=== PATIENT | male | born 1950 | race Caucasian/White ===

== ENCOUNTER 2016-11-02 12:25 | Inpatient (IN) | payer MEDICARE ==
[~2016-11-02] VITALS: Ht 172.7 cm; Wt 52.8 kg
--- NOTE | ~2016-11-02 | CR72 ---
[facility] A Service of [facility] & [facility] / [facility] RADIOLOGY TEXT RESULTS PATIENT: BLANKA RITCHIE LOCATION: [facility] 304-01 : 50 UNIT #: [id number] AGE: [address]: Elba Tamayo MD SEX: M ORDER DR: [id number] [facility] [address] [facility]. [place], [place] [address] [id number] MR#: [id number] Acc #: [id number] NAME: BLANKA RITCHIE : 1950 SEX: M STUDY DATE/TIME: 11/02/2016 13:09 UNIT: [facility] ROOM: STUDY DESCRIPTION: CR Chest Single View Portable Attending Physician: Hilario Gifford M.D. Ordering Physician: Hilario Gifford M.D. Primary Care Physician: Jose Salcedo M.D. MEDICAL IMAGING REPORT This report is preliminary unless electronic signature is present EXAM Single view of the chest, dated 11/02/2016. COMPARISON None. HISTORY Weakness and shortness of air today. FINDINGS Single view of the chest was obtained. Calcified right lower lobe lung nodule is noted likely related to old granulomatous disease. The remaining lungs are well aerated without acute cardiopulmonary disease. Heart is of normal size. Dictated by... Helene Cardozo M.D. THIS IS AN ELECTRONICALLY VERIFIED REPORT Helene Cardozo M.D. at 11/03/2016 5:24 PM CPR/jt TD: 11/02/2016 16:21 JOB #: [id number] MEDICAL IMAGING REPORT Page 1 of 1 COPY
--- NOTE | ~2016-11-02 | EKG ---
PATIENT: BLANKA RITCHIE UNIT #: [id number] Ventricular Rate: 67 BPM Atrial Rate: 67 BPM P-R Interval: 158 ms QRS Duration: 94 ms Q-T Interval: 444 ms QTC Calculation(Bezet): 469 ms P [place]: 82 degrees Calculated R [place]: 69 degrees Calculated T [place]: 56 degrees Diagnosis Line: Normal sinus rhythm Diagnosis Line: Normal ECG Diagnosis Line: No previous ECGs available Diagnosis Line: Confirmed by PIPPA GONZALEZ MD ([id number]) on Diagnosis Line: 11/03/2016 4:41:58 PM INTERPRETING MD: VASU
--- NOTE | ~2016-11-02 | CO ---
Unit #: [id number] #: [id number] Patient: BLANKA RITCHIE [id number] [address] [place], [place] [address] [id number] I MR#: [id number] NAME: BLANKA RITCHIE ROOM: 304 Age: 66 Sex: M Admission Date: 11/02/2016 : 1950 Attending Physician: Elba Tamayo M.D. Primary Care Physician: Jose Salcedo M.D. Consultation Date: 11/03/2016 CONSULTATION REPORT REASON FOR CONSULTATION Hyponatremia. HISTORY OF PRESENT ILLNESS This is a 66-year-old white gentleman with known history of heavy alcohol use. He admits to drinking about 6 beers or more daily. He was found in a [employer] behaving erratically. He states that he fell to the floor and was assisted by EMS, who brought the patient to the emergency room for further evaluation and management. He has not had any complaints of cough, shortness of breath, nausea, or vomiting. He claims to be eating regular meals and drinking plenty of fluids. He denies any shortness of breath, cough, nausea or vomiting, diarrhea, dysuria, or hematuria. He has no complaints of dependent edema or chest pain. PAST MEDICAL HISTORY Negative except as stated above. HOME MEDICATIONS He is on no home medications. SOCIAL HISTORY The patient drinks 6 beers or more a day. He denies any drug abuse. He quit smoking about 25 years ago. FAMILY HISTORY Negative for renal disease. REVIEW OF SYSTEMS A 14-point review of systems was performed, and the pertinent positives and negatives are as stated above. PHYSICAL EXAMINATION GENERAL: This is an awake, alert, but confused white gentleman, who is hallucinating. VITAL SIGNS: Today, show a temperature of 97.9, pulse 64, respirations 15, blood pressure is 123/79. HEENT: Shows the pupils to be equal and reactive to light with normal extraocular motility. The oropharynx is clear. There are no mucosal abnormalities. NECK: Supple with 2+ carotid pulses. No carotid bruits or JVD. HEART: Regular rhythm without murmurs, gallops, or rubs. LUNGS: Clear without rales, rhonchi, or wheezes. ABDOMEN: Scaphoid, soft, and nontender with positive bowel sounds. No hepatosplenomegaly. No CVA tenderness. No presacral edema. Unit #: [id number] #: [id number] Patient: BLANKA RITCHIE EXTREMITIES: Show no clubbing, no cyanosis, no significant pretibial edema, 2+ pedal and radial pulses. DIAGNOSTIC STUDIES LABORATORY RESULTS: Showed the following; glucose 91, BUN and creatinine of 17 and 0.8, sodium is 114, potassium 3.4, chloride 77, CO2 of 34, calcium 8.3, magnesium 2.2, total protein 7.4, albumin 4.1, total bilirubin is 3.8, AST is 49, ALT is 32, alkaline phosphatase is 81, CK is 48. Serum osmolality is 275 with a urine osmolality of 260. TSH is 2.1, PT and PTT are 10.9 and 30. White count is 4400, hemoglobin and hematocrit are 11.9 and 33, platelet count is 309,000. Urine sodium is less than 1%. IMPRESSION 1. Hyponatremia, most likely secondary to sodium greater than free water losses. 2. Alcoholic hepatitis. 3. Alcohol abuse. 4. Alcoholic withdrawal. RECOMMENDATIONS We would continue with IV normal saline. We would check phosphorus. We would restrict free water for now. We would manage withdrawal symptoms as you are doing. The patient has been advised to stop drinking alcohol. We would follow along with you. Thank you very much for allowing us to participate in this patient's care. Dictated by... Judd Oquendo Jr., MDaily. JOYCE/marina TD: 11/04/2016 04:08 JOB #: [id number] CONSULTATION REPORT Page 1 of 1 X Judd Oquendo Jr, MD X CONSULTATION REPORT
--- NOTE | ~2016-11-02 | HP ---
Unit #: [id number] #: [id number] Patient: BLANKA RITCHIE [id number] [facility] [address] [facility]. [place], [place] [address] [id number] MR#: [id number] NAME: BLANKA RITCHIE ROOM: Age: 66 Sex: M Admission Date: 11/02/2016 : 1950 Attending Physician: Hilario Gifford M.D. Primary Care Physician: Jose Salcedo M.D. HISTORY AND PHYSICAL CHIEF COMPLAINT Chief complaint is altered mental status. HISTORY OF PRESENT ILLNESS The patient is a 66-year-old male with past medical history of alcohol abuse who presented to the emergency department for evaluation of the above. The patient was reportedly acting "odd" at the [facility]. He was brought to the emergency department for further evaluation. The patient has no complaints. He states that his "metabolism is low." He denies any fever; no cough or cold symptoms, no chest pain, no difficulty breathing, no vomiting or diarrhea, no urinary problems. In the emergency department initial pulse and blood pressure were 74 and 136/74 respectively. Laboratory notable for sodium of 118, potassium is 2.2. He was given a 1 L normal saline bolus. He is being admitted to [facility] for evaluation and further treatment. Of note the patient is a daily drinker. He typically drinks at least four to six beers daily. PAST MEDICAL HISTORY The patient denies hospitalizations. PAST SURGICAL HISTORY None. SOCIAL HISTORY The patient is a daily drinker. He drinks four to six beers daily. His last drink was yesterday. He is retired from a [employer] company. He quit smoking 25 years ago. FAMILY HISTORY Family history is notable for both parents being alcoholics. ALLERGIES No known allergies. HOME MEDICATIONS None. REVIEW OF SYSTEMS A complete review of systems is negative except as indicated in the HPI. Unit #: [id number] #: [id number] Patient: BLANKA RITCHIE DIAGNOSTIC TESTS CARDIOVASCULAR: EKG shows normal sinus rhythm with a rate of 67 beats per minute. LABORATORY: Complete blood count is essentially normal. Comprehensive metabolic panel notable for sodium of 117, potassium 2.1, chloride at 63, CO2 of 36, AST and ALT are 49 and 32 respectively, total bilirubin is 3.8 with 0.9 direct, 2.9 indirect. Accu-Chek was 69, then dropped to 65, most recently 124. IMAGING: Chest x-ray shows calcified right lower lobe lung nodule, likely old granulomatous disease. PHYSICAL EXAMINATION VITAL SIGNS: Temperature is 97.5. Pulse 74. Respirations 18. Blood pressure 136/74. Oxygen saturation is 95% on 2 L. GENERAL: The patient is a male who is awake and alert, in no acute distress. HEENT: The head is atraumatic. Mucous membranes are moist. NECK: Is supple. Trachea is midline. CARDIOVASCULAR: Is regular rate and rhythm. LUNGS: Are relatively clear to auscultation bilaterally with no increased work of breathing. ABDOMEN: Is soft, nontender, with bowel sounds present in all four quadrants. EXTREMITIES: The patient does have scattered healing abrasions. There is no pedal edema. NEURO: The patient is oriented x3 although he is not sure of the month. He does know the year. He is moving all extremities. He follows commands. PSYCH: The patient is somewhat disheveled and makes poor eye contact. SKIN: Of examined areas is warm and dry. ASSESSMENT The patient is a 66-year-old male with: 1. Altered mental status. 2. Hyponatremia. The patient's sodium is 117 with no baseline for comparison. The patient received 1 L of normal saline in the emergency department. The patient does appear somewhat volume depleted. Urinalysis is pending. 3. Hypokalemia with potassium of 2.2. 4. Alcohol abuse with last drink being yesterday. 5. Hyperbilirubinemia. 6. Former smoker. PLAN 1. Admit to intermediate level. 2. Regular diet if passes bedside swallow. 3. Bedrest. 4. Fall precautions. 5. PT/OT to evaluate and treat. 6. TSH, B12 and folate. 7. Neuro checks. 8. Check magnesium level. 9. Potassium and magnesium protocol. 10. Urine sodium and osmolality. 11. Serum osmolality. 12. Alcohol withdrawal protocol to start now with IV fluid rate at 75 mL Unit #: [id number] #: [id number] Patient: BLANKA RITCHIE hour. 13. BMPs q.[address] Banda regarding hyponatremia. 15. irrigation manager and social work consult regarding alcohol abuse. 16. Check INR. 17. Cardiac enzymes. 18. Frequent Accu-Cheks. 19. Hemoglobin A1C. 20. SCDs for DVT prophylaxis. 21. Repeat labs in the morning. 22. Additional workup and consultants based on above. Dictated by Anabelle Welch M.D. ARNULFO/kam TD: 11/02/2016 18:50 JOB #: [id number] HISTORY AND PHYSICAL Page 1 of 1 X Anabelle Welch MD X HISTORY AND PHYSICAL
--- NOTE | ~2016-11-02 | A ---
[facility] Nutrition Therapy DATE: 11/03/16 Patient: BLANKA RITCHIE Physician: ANTONIO Address: [address] Room/Bed: [address] [place] [address], Zip: [place] [address] Admit Date: 11/02/16 Date of : [birth year] Height: 5 8 Weight: 106 48.2 NUTRITIONAL ASSESSMENT: REASON: Low BMI 66 yo male admitted for AMS PMH: EtOH abuse Anthropometrics: Ht: 68" Wt: 48.2 kg BMI: 16.2 IBW: 70 kg, 69% IBW Labs: Na+ 120 Cl- 77 Alb 3.2 Phos 1.2 Accuchecks 107 Meds: Phenergan, D5%, folic acid, thiamine, folvite, therapeutic formula, loperamide Bowel function: last BM 11/03 Skin Integrity: Dry skin BL feet Scabbed area left shoulder Small briose left back Scabs- BLE/ scattered/ right forehead Edema: none noted Estimated Nutrition Needs: Increased due to low body weight Diet: Regular Assessment: Chart reviewed, events noted. 66 yo male admitted for AMS, found to have hyponatremia and hypokalemia. Pt has a h/o EtOH abuse with reported consumption of 4-6 beers daily. Pt is JEF for CT head at time of RD visit. RN reports that the pt's standing scale weight of 106 lbs is likely accurate, as he appears frail and weak. RN reports that the pt is consuming all of his meals and seems to have a great appetite. Pt is likely malnourished d/t EtOH abuse, low body weight. Pt is receiving vitamins and minerals, repleting lytes as noted above. Please see recommendations below. Dx: Malnutrition RT possibly EtOH abuse AEB BMI 16.2, 69% IBW, pt thin and frail appearing per RN report. Intervention: 1. Continue regular diet 2. Ensure TID Monitoring, Evaluation and Goals: [facility] Nutrition Therapy DATE: 11/03/16 Patient: BLANKA RITCHIE Physician: ANTONIO Address: [address] Room/Bed: [address] [place] [address], Zip: [place] [address] Admit Date: 11/02/16 Date of : [birth year] Height: 5 8 Weight: 106 48.2 1. Oral intake; consume 50-100% of meals and supplements 2. Improve labs; Na+, Cl-, Phos 3. Weight; promote weight gain, prevent weight loss 4. Skin; prevent breakdown Recommendations: 1. Continue regular diet as tolerated. 2. Ensure TID with meals for supplemental nutrition. 3. Continue vitamin and mineral supplementation. 4. Encourage adequate nutritional intake as needed. Pt is at mild-moderate nutritional risk. RD will follow hospital course per protocol. Respectfully, JOSE ELIAS JUAREZ RD, LD [employer] and [employer] [facility] cc: client file
--- NOTE | ~2016-11-02 | DS ---
Unit #: [id number] #: [id number] Patient: BLANKA RITCHIE [id number] [address] [place], [place] [address] [id number] I MR#: [id number] NAME: BLANKA RITCHIE ROOM: 301 Age: 66 Sex: M Admission Date: 11/02/2016 : 1950 Discharge Date: 11/07/2016 Attending Physician: Elba Tamayo M.D. Primary Care Physician: Jose Salcedo M.D. DISCHARGE SUMMARY FINAL DIAGNOSES 1. Altered mental status. 2. Toxic metabolic encephalopathy. 3. Hyponatremia. 4. Beer potomania. CONSULT Dr. Rob Banda, Nephrology. HOSPITAL COURSE A 66-year-old heavy drinker originally presented with altered mental status. He was seen and evaluated. Encephalopathy was thought to be secondary to hyponatremia. He does have some COPD as well. He was seen by nephrology as his sodium level was down to 125. This improved with treatment today which is the day of discharge. His sodium level is 131. Medications have been adjusted by nephrology. IV fluids have been discontinued. He also had some electrolyte abnormality which included hypomagnesemia which was repleted and his potassium was also repleted as well. For his debility, he is weak at this time. The plan will be to discharge him to subacute rehab. I believe [facility] has accepted. Will discharge him there. Patient was reluctant to discharge to [facility]; however, I reassured patient that his estimated rehab course to probably spend about two to three weeks which he is agreeable to. Will discharge him to [facility]. Please call ([phone] to verify orders. Time spent coordinating discharge about 42 minutes. Dictated by... Earl Emerson TD: 11/07/2016 12:00 JOB #: [id number] CC: Unit #: [id number] #: [id number] Patient: BLANKA RITCHIE DISCHARGE SUMMARY Page 1 of 1 X Gordo Suero MD SUMMARY
--- NOTE | ~2016-11-02 | CT71 ---
[facility] A Service of [facility] & [facility] RADIOLOGY TEXT RESULTS PATIENT: BLANKA RITCHIE LOCATION: [facility] : [birth year] UNIT #: [id number] AGE: [address]: Elba Tamayo MD SEX: M ORDER DR: [id number] [facility] [address] [facility]. [place], [place] [address] [id number] I MR#: [id number] Acc #: [id number] NAME: BLANKA RITCHIE : 1950 SEX: M STUDY DATE/TIME: 11/03/2016 14:16 UNIT: [id number] ROOM: [facility] STUDY DESCRIPTION: CT Head Wo Contrast Attending Physician: Elba Tamayo M.D. Ordering Physician: Elba Tamayo M.D. Primary Care Physician: Jose Salcedo M.D. MEDICAL IMAGING REPORT This report is preliminary unless electronic signature is present EXAM CT head without contrast dated 11/03/2016. COMPARISON None. HISTORY Confusion today. TECHNIQUE This CT exam was performed with one or more of the following radiation dose reduction techniques: automatic exposure control, adjustment of mA and/or kV according to patient size, and iterative reconstruction. FINDINGS CT of the head was obtained without contrast in the axial plane as per the protocol. Age-appropriate parenchymal volume is seen. No acute intracranial hemorrhage, hydrocephalus, space-occupying mass, mass effect or midline shift. There is mild nasal septal deviation to the left. Paranasal sinuses demonstrate mild mucosal thickening and frothiness in the right maxillary antrum. Mastoid air cells and orbits and the ocular structures do not demonstrate any significant abnormality. IMPRESSION 1. No demonstrable intracranial abnormality. 2. Correlate with right maxillary sinusitis. Dictated by... Helene Cardozo M.D. THIS IS AN ELECTRONICALLY VERIFIED REPORT [facility] A Service of [facility] & [facility] RADIOLOGY TEXT RESULTS PATIENT: BLANKA RITCHIE LOCATION: [facility] : [birth year] UNIT #: [id number] AGE: [address]: Elba Tamayo MD SEX: M ORDER DR: Helene Cardozo M.D. at 11/08/2016 7:04 PM CPR/ea TD: 11/04/2016 07:05 JOB #: [id number] MEDICAL IMAGING REPORT Page 1 of 1 COPY
[2016-11-02 13:50] LABS: BASOPHIL% 0.5 % (0-2.5); EOSINOPHIL% 0.1 % (0.0-7.0); HEMATOCRIT 38.6 % (38.0-50.0); HEMOGLOBIN 13.9 gm/dL (13.0-16.0); LYMPHOCYTE# 0.5 X10e3 (1.0-3.5); LYMPHOCYTE% 12.5 % (17.0-45.0); MEAN CELL VOLUME 95.9 FL (83-96); MEAN CORPUSCULAR HEMOGLOBIN 34.5 PG (28-34); MEAN PLATELET VOLUME 7.2 FL (6.5-11.5); MONOCYTE# 0.4 X10e3 (0-1.0); NEUTROPHIL# 3.3 X10e3 (1.5-7.1); NEUTROPHIL% 77.9 % (40-75); PLATELET COUNT 250 X10e3 (140-420); RED BLOOD COUNT 4.03 X10e (3.90-5.60); WHITE BLOOD COUNT 4.2 X10e3 (4.0-10.5)
[2016-11-02 13:51] LABS: DIFF IND NO
[2016-11-02 14:18] LABS: ALBUMIN SERUM 4.1 g/dL (3.5-5.0); BILIRUBIN, DIRECT 0.9 mg/dL (0.0-0.2); BILIRUBIN,INDIRECT 2.9 mg/dL (0.0-0.9); BILIRUBIN,TOTAL 3.8 mg/dL (0.2-2.0); BUN/CREATININE RATIO 18.33; CALCIUM SERUM 9.3 mg/dL (8.4-10.2); CREATININE SERUM 1.2 mg/dL (0.6-1.4); GLOM FILT RATE Estimated 62.7 mL/min (>60); PROTEIN TOTAL SERUM 7.4 g/dL (6.0-8.3)
[2016-11-02 14:22] LABS: POTASSIUM 2.1 mmol/L (3.5-5.1)
[2016-11-02 15:35] LABS: BUN/CREATININE RATIO 18.18; CALCIUM SERUM 8.8 mg/dL (8.4-10.2); CREATININE SERUM 1.1 mg/dL (0.6-1.4); GLOM FILT RATE Estimated 69.6 mL/min (>60)
[2016-11-02 15:38] LABS: POTASSIUM 2.2 mmol/L (3.5-5.1)
[2016-11-02] MEDS ORDERED: NO MEDICATIONS (17:43)
[2016-11-02 17:48] LABS: URINE SOURCE CLEAN CATCH
[2016-11-02 18:10] LABS: URINE APPEARANCE CLEAR; URINE BILIRUBIN NEG (NEG); URINE BLOOD NEG (NEG); URINE COLOR YELLOW; URINE GLUCOSE 100 MG/DL (NEG); URINE KETONE 1+ (NEG); URINE LEUKOCYTE ESTERASE NEG (NEG); URINE NITRATE NEG (NEG); URINE PH 6.5 (5-8); URINE PROTEIN NEG (NEG)
[2016-11-02 18:22] LABS: AMPHETAMINE NEG (NEG); BARBITURATES NEG (NEG); BENZODIAZEPINES NEG (NEG); COCAINE NEG (NEG); MARIJUANA NEG (NEG); OPIATES NEG (NEG); TRICYCLIC ANTIDEPRESSANTS NEG (NEG); U METHADONE NEG (NEG)
[2016-11-02 18:27] LABS: CULTURE INDICATED? NO
[2016-11-02 19:41] LABS: PROTHROMBIN TIME (PATIENT) 10.9 SECONDS (10.0-11.7)
[2016-11-02 19:50] LABS: CK TOTAL 65 IU/L (36-174); MAGNESIUM 2.2 mg/dL (1.6-3.0)
[2016-11-02 20:11] LABS: %MB 3.5 % (0.0-4.0); MB 2.3 ng/ml
[2016-11-02 20:14] LABS: CALCIUM SERUM 8.7 mg/dL (8.4-10.2); GLOM FILT RATE Estimated 78.1 mL/min (>60)
[2016-11-02 20:15] LABS: FOLATE (FOLIC ACID) >23.3 ng/mL (>5.8)
[2016-11-02 20:16] LABS: POTASSIUM 2.6 mmol/L (3.5-5.1)
[2016-11-03 01:22] LABS: BUN/CREATININE RATIO 21.25; CALCIUM SERUM 8.3 mg/dL (8.4-10.2); CREATININE SERUM 0.8 mg/dL (0.6-1.4); GLOM FILT RATE Estimated 93.1 mL/min (>60); POTASSIUM 3.4 mmol/L (3.5-5.1)
[2016-11-03 01:32] LABS: SODIUM URINE RANDOM <10 mmol/L
[2016-11-03 01:44] LABS: OSMOLALITY,URINE 260 mOsmo/kg (250-900)
[2016-11-03 01:58] LABS: CK TOTAL 58 IU/L (36-174)
[2016-11-03 07:38] LABS: HEMATOCRIT 33.1 % (38.0-50.0); MEAN CELL VOLUME 96.5 FL (83-96); MEAN CORPUSCULAR HEMOGLOBIN 34.7 PG (28-34); MEAN PLATELET VOLUME 6.9 FL (6.5-11.5); RED BLOOD COUNT 3.43 X10e (3.90-5.60); RED CELL DISTRIBUTION WIDTH 15.6 % (11.0-15.5); WHITE BLOOD COUNT 4.4 X10e3 (4.0-10.5)
[2016-11-03 07:41] LABS: HEMOGLOBIN 11.9 gm/dL (13.0-16.0)
[2016-11-03 07:53] LABS: PROTHROMBIN TIME (PATIENT) 11.1 SECONDS (10.0-11.7)
[2016-11-03 08:18] LABS: THYROID STIMULATING HORMONE 1.96 uIU/ml (0.34-5.60)
[2016-11-03 08:20] LABS: CK TOTAL 52 IU/L (36-174)
[2016-11-03 08:22] LABS: ALBUMIN SERUM 3.2 g/dL (3.5-5.0); BILIRUBIN,TOTAL 2.2 mg/dL (0.2-2.0); BUN/CREATININE RATIO 16.25; CALCIUM SERUM 8.5 mg/dL (8.4-10.2); CREATININE SERUM 0.8 mg/dL (0.6-1.4); GLOM FILT RATE Estimated 93.1 mL/min (>60); MAGNESIUM 1.9 mg/dL (1.6-3.0); POTASSIUM 3.9 mmol/L (3.5-5.1); PROTEIN TOTAL SERUM 5.8 g/dL (6.0-8.3)
[2016-11-03 12:06] LABS: BUN/CREATININE RATIO 13.75; CALCIUM SERUM 8.4 mg/dL (8.4-10.2); CREATININE SERUM 0.8 mg/dL (0.6-1.4); GLOM FILT RATE Estimated 93.1 mL/min (>60); POTASSIUM 3.2 mmol/L (3.5-5.1)
[2016-11-03 12:36] LABS: CREATININE,RANDOM URINE 25 mg/dL
[2016-11-03 12:37] LABS: OSMOLALITY,URINE 173 mOsmo/kg (250-900)
[2016-11-04 05:18] LABS: HEMATOCRIT 32.1 % (38.0-50.0); HEMOGLOBIN 11.1 gm/dL (13.0-16.0); MEAN CELL VOLUME 99.3 FL (83-96); MEAN CORPUSCULAR HEMOGLOBIN 34.2 PG (28-34); MEAN CORPUSCULAR HGB CONC 34.4 g/dL (30-36); MEAN PLATELET VOLUME 7.7 FL (6.5-11.5); RED BLOOD COUNT 3.24 X10e (3.90-5.60); RED CELL DISTRIBUTION WIDTH 15.3 % (11.0-15.5); WHITE BLOOD COUNT 4.8 X10e3 (4.0-10.5)
[2016-11-04 06:09] LABS: ALBUMIN SERUM 2.8 g/dL (3.5-5.0); BILIRUBIN,TOTAL 1.2 mg/dL (0.2-2.0); BUN/CREATININE RATIO 15.71; CALCIUM SERUM 7.9 mg/dL (8.4-10.2); CREATININE SERUM 0.7 mg/dL (0.6-1.4); GLOM FILT RATE Estimated 98.4 mL/min (>60); MAGNESIUM 1.6 mg/dL (1.6-3.0); POTASSIUM 3.5 mmol/L (3.5-5.1); PROTEIN TOTAL SERUM 5.7 g/dL (6.0-8.3)
[2016-11-05 04:51] LABS: HEMATOCRIT 32.8 % (38.0-50.0); HEMOGLOBIN 11.4 gm/dL (13.0-16.0); MEAN CELL VOLUME 99.1 FL (83-96); MEAN CORPUSCULAR HEMOGLOBIN 34.6 PG (28-34); MEAN CORPUSCULAR HGB CONC 34.9 g/dL (30-36); RED BLOOD COUNT 3.31 X10e (3.90-5.60); RED CELL DISTRIBUTION WIDTH 15.5 % (11.0-15.5)
[2016-11-05 06:11] LABS: BUN/CREATININE RATIO 11.66; CALCIUM SERUM 8.4 mg/dL (8.4-10.2); CREATININE SERUM 0.6 mg/dL (0.6-1.4); GLOM FILT RATE Estimated 104.8 mL/min (>60); MAGNESIUM 1.7 mg/dL (1.6-3.0); PHOSPHOROUS 1.3 mg/dL (2.5-4.6); POTASSIUM 3.3 mmol/L (3.5-5.1)
[2016-11-06 12:01] LABS: HEMATOCRIT 34.8 % (38.0-50.0); HEMOGLOBIN 12.2 gm/dL (13.0-16.0); MEAN CELL VOLUME 99.5 FL (83-96); MEAN CORPUSCULAR HEMOGLOBIN 34.9 PG (28-34); MEAN CORPUSCULAR HGB CONC 35.1 g/dL (30-36); MEAN PLATELET VOLUME 7.6 FL (6.5-11.5); RED BLOOD COUNT 3.5 X10e (3.90-5.60); RED CELL DISTRIBUTION WIDTH 15.7 % (11.0-15.5); WHITE BLOOD COUNT 3.1 X10e3 (4.0-10.5)
[2016-11-06 12:23] LABS: BLOOD UREA NITROGEN <5 mg/dL (9-23); BUN/CREATININE RATIO 8.33; CALCIUM SERUM 8.5 mg/dL (8.4-10.2); CARBON DIOXIDE 28 mmol/L (22-31); CHLORIDE 93 mmol/L (100-111); CREATININE SERUM 0.6 mg/dL (0.6-1.4); GLOM FILT RATE Estimated 104.8 mL/min (>60); GLUCOSE FASTING 101 mg/dL (70-110); POTASSIUM 3.9 mmol/L (3.5-5.1); SODIUM 129 mmol/L (135-145)
[2016-11-07 06:32] LABS: HEMATOCRIT 33.1 % (38.0-50.0); HEMOGLOBIN 11.6 gm/dL (13.0-16.0); MEAN CORPUSCULAR HEMOGLOBIN 34.6 PG (28-34); MEAN PLATELET VOLUME 7.8 FL (6.5-11.5); RED BLOOD COUNT 3.34 X10e (3.90-5.60); RED CELL DISTRIBUTION WIDTH 16.1 % (11.0-15.5); WHITE BLOOD COUNT 3.9 X10e3 (4.0-10.5)
[2016-11-07 06:56] LABS: CALCIUM SERUM 8.8 mg/dL (8.4-10.2); CREATININE SERUM 0.5 mg/dL (0.6-1.4); MAGNESIUM 1.7 mg/dL (1.6-3.0); PHOSPHOROUS 2.2 mg/dL (2.5-4.6); POTASSIUM 4.6 mmol/L (3.5-5.1)
== END 2016-11-07 18:23 | DRG 640 ==
LOC: CED 12:25 → SEDOF 18:15 → C3A PCU 18:15 → SEDOF 19:23 → CED 19:23 → SEDOF 19:58 → C3A PCU 19:58
PROVIDERS: Emergency Medicine; Family Medicine; Internal Medicine Nephrology
DX: E87.1 Hypo-osmolality and hyponatremia (principal); G92 Toxic encephalopathy; E43 Unspecified severe protein-calorie malnutrition; J44.9 Chronic obstructive pulmonary disease, unspecified; K70.10 Alcoholic hepatitis without ascites; F10.239 Alcohol dependence with withdrawal, unspecified; E87.6 Hypokalemia; Z87.891 Personal history of nicotine dependence; E80.6 Other disorders of bilirubin metabolism; Z81.1 Family history of alcohol abuse and dependence
CPT/HCPCS: 36415; 70450; 71010; 80048; 80053; 80076; 80307; 81003; 82140; 82533; 82550; 82553; 82570; 82607; 82746; 82947; 83036; 83735; 83930; 83935; 84100; 84132; 84300; 84443; 84484; 85025; 85027; 85610; 93005; 96361; 96365; 97116; 97161; 97166; 97535; 99285; G8978-GP; G8979-GP; G8980-GP; G8987-GO; G8988-GO; J3411; J3475; J7042